=== PATIENT | male | born 1960 | race Caucasian/White ===

== ENCOUNTER 2017-03-10 16:57 | Inpatient (IN) | payer MEDICAID ==
--- NOTE | 2017-03-10 17:25 | EDPHY ---
H & P Stated Complaint: llq abd pain, unable to urinate Time Seen by Provider: 03/10/17 17:17 - Personal History Current Tetanus Diphtheria and Acellular Pertussis (TDAP): Unsure - Medical/Surgical History Other PMH: prostate problems, lung ca, copd, emotional problems-service dog - Social History Smoking Status: Current every day smoker Constitutional: Initial Vital Signs Temperature (C) 36.4 C 03/10/17 16:57 Heart Rate 86 03/10/17 16:57 Respiratory Rate 16 03/10/17 16:57 Blood Pressure 168/69 H 03/10/17 16:57 O2 Sat (%) 99 03/10/17 16:57 O2 Delivery Mode Room Air Allergies/Adverse Reactions: No Known Allergies Allergy (Verified 03/10/17 18:23) Home Medications: Medication Instructions Recorded NK [No Known Home Meds] 03/10/17 Medical Decision Making ED Course/Re-evaluation: CHIEF COMPLAINT: Dysuria, pain in his bladder and penis HISTORY OF PRESENT ILLNESS: The patient is a homeless 56 y/o male with a history of enlarged prostate complaining of urinary retention, hematuria, and pain in his bladder and penis. About a year and a half ago he saw a doctor who advised him to have prostate removal surgery. He never had the surgery. Since then he has had difficulty urinating, painful urination, and urinary retention. Today the pain in his bladder and penis increased prompting him to present to the ED. He denies any associated symptoms. REVIEW OF SYSTEMS: A 10 point review of systems was performed and is negative with the exception of the elements mentioned in the history of present illness. PHYSICAL EXAM: HR, BP, O2 Sat, RR. Temp noted General Appearance: Alert, well hydrated, appropriate, and non-toxic appearing. In obvious discomfort. Head: Atraumatic without scalp tenderness or obvious injury Eyes: Pupils equal, round, reactive to light and accommodation, EOMI, no trauma , no injection. Ears: Clear bilaterally, no perforation, normal landmarks Nose: Atraumatic, no rhinorrhea, clear. Throat: There is no erythema or exudates, no lesions, normal tonsils, mucus membranes moist. Neck: Supple, no lymphadenopathy. Respiratory: No retractions, no distress, no wheezes, and no accessory muscle use. Lungs are clear to auscultation bilaterally. Cardiovascular: Regular rate and rhythm, no murmurs, rubs, or gallops. Good capillary refill all extremities. Gastrointestinal: Abdomen is soft, nontender, non-distended, no masses, no rebound, no guarding, no peritoneal signs. Musculoskeletal: Normal active ROM of all extremities, atraumatic. Neurological: Alert, appropriate, and interactive. The patient has normal DTRs and non-focal cranial nerves, motor, sensory, and cerebellar exam. Skin: No rashes, good turgor, no nodules on palpation. Past medical history: Enlarged prostate, lung cancer Past surgical history: Denies Family history: Non-contributory Social history: Homeless, unemployed, resides in [place] DIAGNOSTICS/PROCEDURES/CRITICAL CARE TIME: DIFFERENTIAL DIAGNOSIS: The differential diagnosis for the patient's urinary retention included but was not limited to medication side effect, neurologic causes, outflow obstruction including prostatic hypertrophy, and infection. MEDICAL DECISION MAKING: The patient is a homeless 56 y/o male with a history of enlarged prostate complaining of difficulty urinating and pain in his bladder and penis. About a year and a half ago he was advised to have his prostate removed. He refused. Since then he has had difficulty urinating and pain in his bladder and penis. Today his symptoms were worse prompting him to present to the ED. I suspect severe infection due to urinary retention secondary to prostatic hypertrophy. Plan for admission based on his symptoms. Catheter inserted and bladder drained. Prior to catheter placement he had 900 residual in the bladder. Hospitalist service contacted and Dr. Farr will be admitting. - Data Points Laboratory Results: Laboratory Results 03/10/17 17:15 03/10/17 17:15 03/10/17 03/10/17 03/10/17 17:15 17:15 17:15 WBC RBC Hgb Hct MCV MCH MCHC RDW Plt Count MPV Neut % (Auto) Lymph % (Auto) Creek % (Auto) Eos % (Auto) Baso % (Auto) Nucleat RBC Rel Count Absolute Neuts (auto) Absolute Lymphs (auto) Absolute Monos (auto) Absolute Eos (auto) Absolute Basos (auto) Absolute Nucleated RBC Immature Gran % Immature Gran # Sodium 131 mEq/L L mEq/L (134-144) Potassium 4.1 mEq/L mEq/L (3.5-5.2) Chloride 92 mEq/L L mEq/L (97-110) Carbon Dioxide 22 mEq/l mEq/l (22-31) Anion Gap 17 mEq/L H mEq/L (8-16) BUN 9 mg/dL mg/dL (7-23) Creatinine 1.0 mg/dL mg/dL (0.7-1.3) Estimated GFR > 60 Glucose 102 mg/dL H mg/dL (70-100) Calcium 10.0 mg/dL mg/dL (8.5-10.4) Phosphorus 3.1 mg/dL mg/dL (2.5-4.5) Magnesium 1.8 mg/dL mg/dL (1.6-2.3) Total Bilirubin 1.1 mg/dL mg/dL (0.1-1.4) Conjugated Bilirubin 0.4 mg/dL mg/dL (0.0-0.5) Unconjugated Bilirubin 0.7 mg/dL mg/dL (0.0-1.1) AST 47 IU/L IU/L (17-59) ALT 54 IU/L IU/L (21-72) Alkaline Phosphatase 108 IU/L IU/L (38-126) Total Protein 8.6 g/dL H g/dL (6.3-8.2) Albumin 4.2 g/dL g/dL (3.5-5.0) Urine Color Urine Appearance Urine pH Ur Specific [place] Urine Protein Urine Ketones Urine Blood Urine Nitrate Urine Bilirubin Urine Urobilinogen Ur Leukocyte Esterase Urine RBC Cancelled Urine WBC Cancelled Ur Epithelial Cells Cancelled Ur Renal Epithelial Cell Cancelled Urine Crystals Cancelled Ammonium Urate Crystals Cancelled Calcium Carbonate Cryst Cancelled Calcium Phosphate Cryst Cancelled Calcium Oxalate Crystal Cancelled Leucine Crystals Cancelled Cystine Crystals Cancelled Uric Acid Crystals Cancelled Triple Phos Crystals Cancelled Sulfonamide Crystals Cancelled Cholesterol Crystals Cancelled Tyrosine Crystals Cancelled Bilirubin Crystals Cancelled Amorphous Sediment Cancelled Urine Bacteria Cancelled Epithelial Casts Cancelled Fatty Casts Cancelled Hyaline Casts Cancelled Granular Casts Cancelled Waxy Casts Cancelled Broad Casts Cancelled RBC Casts Cancelled WBC Casts Cancelled Urine Mucus Cancelled Urine Trichomonas Cancelled Urine Yeast Cancelled Urine Sperm Cancelled Ur Oval Fat Bodies Cancelled Ur Free Fat Droplets Cancelled Urine Glucose Urine Comment Cancelled 03/10/17 03/10/17 17:15 17:15 WBC 11.37 10^3/uL H 10^3/uL (3.80-9.50) RBC 4.82 10^6/uL 10^6/uL (4.40-6.38) Hgb 16.3 g/dL g/dL (13.7-17.5) Hct 43.6 % % (40.0-51.0) MCV 90.5 fL fL (81.5-99.8) MCH 33.8 pg pg (27.9-34.1) MCHC 37.4 g/dL H g/dL (32.4-36.7) RDW 12.6 % % (11.5-15.2) Plt Count 439 10^3/uL H 10^3/uL (150-400) MPV 9.1 fL fL (8.7-11.7) Neut % (Auto) 74.7 % H % (39.3-74.2) Lymph % (Auto) 19.5 % % (15.0-45.0) Creek % (Auto) 5.0 % % (4.5-13.0) Eos % (Auto) 0.1 % L % (0.6-7.6) Baso % (Auto) 0.3 % % (0.3-1.7) Nucleat RBC Rel Count 0.0 % % (0.0-0.2) Absolute Neuts (auto) 8.49 10^3/uL H 10^3/uL (1.70-6.50) Absolute Lymphs (auto) 2.22 10^3/uL 10^3/uL (1.00-3.00) Absolute Monos (auto) 0.57 10^3/uL 10^3/uL (0.30-0.80) Absolute Eos (auto) 0.01 10^3/uL L 10^3/uL (0.03-0.40) Absolute Basos (auto) 0.03 10^3/uL 10^3/uL (0.02-0.10) Absolute Nucleated RBC 0.00 10^3/uL 10^3/uL (0-0.01) Immature Gran % 0.4 % % (0.0-1.1) Immature Gran # 0.05 10^3/uL 10^3/uL (0.00-0.10) Sodium Potassium Chloride Carbon Dioxide Anion Gap BUN Creatinine Estimated GFR Glucose Calcium Phosphorus Magnesium Total Bilirubin Conjugated Bilirubin Unconjugated Bilirubin AST ALT Alkaline Phosphatase Total Protein Albumin Urine Color YELLOW Urine Appearance MODERATELY TURBID Urine pH 6.0 (5.0-7.5) Ur Specific [place] 1.006 (1.002-1.030) Urine Protein 1+ H (NEGATIVE) Urine Ketones TRACE H (NEGATIVE) Urine Blood 3+ H (NEGATIVE) Urine Nitrate NEGATIVE (NEGATIVE) Urine Bilirubin NEGATIVE (NEGATIVE) Urine Urobilinogen NEGATIVE EU EU (0.2-1.0) Ur Leukocyte Esterase 3+ H (NEGATIVE) Urine RBC 50-182 /hpf H /hpf (0-3) Urine WBC 50-182 /hpf H /hpf (0-3) Ur Epithelial Cells NONE SEEN /lpf /lpf (NONE-1+) Ur Renal Epithelial Cell Urine Crystals Ammonium Urate Crystals Calcium Carbonate Cryst Calcium Phosphate Cryst Calcium Oxalate Crystal Leucine Crystals Cystine Crystals Uric Acid Crystals Triple Phos Crystals Sulfonamide Crystals Cholesterol Crystals Tyrosine Crystals Bilirubin Crystals Amorphous Sediment Urine Bacteria TRACE /hpf H /hpf (NONE SEEN) Epithelial Casts Fatty Casts Hyaline Casts Granular Casts Waxy Casts Broad Casts RBC Casts WBC Casts Urine Mucus Urine Trichomonas Urine Yeast Urine Sperm Ur Oval Fat Bodies Ur Free Fat Droplets Urine Glucose NEGATIVE (NEGATIVE) Urine Comment Medications Given: Discontinued Medications Haloperidol Lactate (Haldol Injection) 10 mg IVP EDNOW ONE Stop: 03/10/17 17:39 Last Admin: 03/10/17 17:42 Dose: 10 mg Hydromorphone HCl (Dilaudid) 1 mg IVP EDNOW ONE Stop: 03/10/17 17:27 Last Admin: 03/10/17 17:29 Dose: 1 mg Ceftriaxone Sodium/Dextrose (Rocephin 1 Gm (Premix)) 50 mls @ 100 mls/hr IV EDNOW ONE PRN Reason: Protocol Stop: 03/10/17 18:09 Last Admin: 03/10/17 17:44 Dose: 50 mls Lorazepam (Ativan Injection) 1 mg IVP EDNOW ONE Stop: 03/10/17 17:31 Last Admin: 03/10/17 17:30 Dose: 1 mg Departure - Departure Disposition: [facility] Acute Clinical Impression: Urinary retention, Homeless UTI (urinary tract infection) Qualifiers: Urinary tract infection type: site unspecified Hematuria presence: with hematuria Qualified Code(s): N39.0 - Urinary tract infection, site not specified Condition: Fair Report Scribed for: Robbie Connor Report Scribed by: Kianna Rondon Date of Report: 03/10/17 Time of Report: 19:03
[2017-03-10] MEDS ORDERED: HYDROmorphONE/DILAUDID 1 MG/ML INJ IVP ONE (17:26)
[2017-03-10] MEDS ORDERED: LORazepam 2 MG/ML INJ ONE (17:27)
[2017-03-10] MEDS ORDERED: HYDROmorphONE/DILAUDID 1 MG/ML INJ ONE (17:27)
[2017-03-10 17:30] LABS: % IMMATURE GRANULYOCYTES 0.4 % (0.0-1.1); ABSOLUTE IMMATURE GRANULOCYTES 0.05 10^3/uL (0.00-0.10); ADD DIFF? NO; ADD MORPH? NO; ADD SCAN? NO; ATYPICAL LYMPHOCYTE FLAG 20 (0-99); FRAGMENT RBC FLAG 0 (0-99); HEMATOCRIT 43.6 % (40.0-51.0); HEMOGLOBIN 16.3 g/dL (13.7-17.5); LEFT SHIFT FLG 0 (0-99); LIPEMIA HEMOLYSIS FLAG 90 (0-99); MEAN CELL HEMOGLOBIN 33.8 pg (27.9-34.1); MEAN CELL HEMOGLOBIN CONCENTR. 37.4 g/dL (32.4-36.7); MEAN CELL VOLUME 90.5 fL (81.5-99.8); MEAN PLATELET VOLUME 9.1 fL (8.7-11.7); PLATELET CLUMPS FLAG 10 (0-99); PLATELET COUNT 439 10^3/uL (150-400); RED BLOOD CELL COUNT 4.82 10^6/uL (4.40-6.38); RED CELL DISTRIBUTION WIDTH 12.6 % (11.5-15.2)
[2017-03-10] MEDS ORDERED: LORazepam 2 MG/ML INJ IVP ONE (17:30)
[2017-03-10 17:32] LABS: COLOR YELLOW; LEUKOCYTE ESTERASE,URINE 3+ (NEGATIVE); NITRITE,URINE NEGATIVE (NEGATIVE)
[2017-03-10] MEDS ORDERED: HALOPERIDOL LACT 5 MG/ML INJ IVP ONE (17:38)
[2017-03-10] MEDS ORDERED: HALOPERIDOL LACT 5 MG/ML INJ ONE (17:40)
[2017-03-10 17:46] LABS: BACTERIA TRACE /hpf (NONE SEEN); RBC,URINE 50-182 /hpf (0-3); WBC,URINE 50-182 /hpf (0-3)
[2017-03-10 17:50] LABS: ANION GAP 17 mEq/L (8-16); CARBON DIOXIDE 22 mEq/l (22-31); CHLORIDE 92 mEq/L (97-110); GLOMERULAR FILTRATION RATE > 60; GLUCOSE 102 mg/dL (70-100); POTASSIUM 4.1 mEq/L (3.5-5.2); SODIUM 131 mEq/L (134-144)
[2017-03-10] MEDS ORDERED: ONDANSETRON 4 MG/2 ML VIAL IVP PRN (18:18)
[2017-03-10] MEDS ORDERED: ONDANSETRON DISINTEGRATING 4 MG TAB PO PRN (18:18)
[2017-03-10 18:42] LABS: ALBUMIN 4.2 g/dL (3.5-5.0); BILIRUBIN,TOTAL 1.1 mg/dL (0.1-1.4); BILIRUBIN-CONJUGATED 0.4 mg/dL (0.0-0.5); BILIRUBIN-UNCONJUGATED 0.7 mg/dL (0.0-1.1); MAGNESIUM 1.8 mg/dL (1.6-2.3); TOTAL PROTEIN 8.6 g/dL (6.3-8.2)
--- NOTE | 2017-03-10 19:34 | GHP ---
[f rep st] HISTORY AND PHYSICAL DATE OF ADMISSION: 03/10/2017 CHIEF COMPLAINT: Dysuria. HISTORY OF PRESENT ILLNESS: A 56-year-old homeless gentleman with history of COPD, asthma, enlarged prostate, presenting with difficulty urinating and dysuria. He is fairly somnolent during my intervi ew, and would have to shake to wake him up. He was able to state that he has been having difficulty urinating for the past year. He says he tried to initiate a stream and will only have 2 drops, and t hen has a burning sensation. Over the last 3 days, he states the burning and stinging sensation has been worse. Also noted hematuria. Subjective fevers and nausea. Denies diarrhea. No flank pain. No headache. No myalgias. No cough. No chest pain. No shortness of breath. REVIEW OF SYSTEMS: I completed a 10-point review of systems, negative except as noted in the HPI. PAST MEDICAL HISTORY: 1. Enlarged prostate. 2. COPD. 3. Asthma. 4. Tobacco abuse. 5. Tetrahydrocannabinol abuse. 6. Stage II lung cancer, per his report, untreated. PAST SURGICAL HISTORY: None. FAMILY HISTORY: Dad had a stroke. Mom of lung cancer. SOCIAL HISTORY: Two packs a day for 45 years. He is currently living in the [facility], in and out of [facility]. Smokes THC daily. Denies alcohol or other illicits. Not currently sexually active. ALLERGIES: No known drug allergies. MEDICATIONS: Not taking any medications. PHYSICAL EXAM: VITAL SIGNS: Temperature 36.4, blood pressure 168/69, heart rate 80, respirations 16 , 99% on room air. GENERAL: Disheveled, sleeping, difficult to keep awake during exam. HEENT: PERRLA. Dry mucous membranes. Poor senior living. CV: Regular rate and rhythm. No murmurs, gallops, rubs. LUNGS: Clear to auscultation bilaterally. ABDOMEN: Soft, nontender, nondistended. : Left suprapubic tenderness. No CVA tenderness. No penile discharge. MUSCULOSKELETAL: 5/5 upper lower extremity strength. NEURO: 2 through 12 intact. PSYCH: Alert and oriented x3. LABORATORY DATA: WBC 11.3, hemoglobin , hematocrit 43, platelets 439, sodium 131, potassiu m 4.1, chloride 92, anion gap is 17, creatinine is 1, glucose 102, phos 3.1. LFTs within normal. Al bumin is 4.2. The patient has been in [place] for 6 weeks, traveled from [place], and then previous ly [place] where he has his diagnosis of cancer, enlarged prostate. UA +1 protein, +3 blood, 50-182 WBCs, trace bacteria. Urine culture pending. ASSESSMENT AND PLAN: 1. Urinary tract infection: Urine culture pending. Continue IV ceftriaxone as dosed in the emergen cy room. 2. Tobacco abuse: Nicotine patch while here. 3. History of stage II lung cancer: This is per patient report. Can obtain records. Will need to establish care with a PCP here. 4. Chronic obstructive pulmonary disease: No evidence of exacerbation. 5. Diet: Regular. 6. Deep vein thrombosis prophylaxis: Lovenox. DISPOSITION: The patient warrants inpatient admission given acute UTI, requiring IV antibiotics and urine culture. /[id number]/MODL
[2017-03-10] MEDS: NICOTINE 21 MG/24 HR PATCH TD SCH (20:34)
[2017-03-10] MEDS ORDERED: LORazepam 2 MG/ML INJ IVP PRN (21:58)
[2017-03-10] MEDS ORDERED: HALOPERIDOL 0.5 MG TAB PO PRN (21:59)
[2017-03-10] MEDS ORDERED: HALOPERIDOL 1 MG TAB PO PRN (22:00)
[2017-03-10] MEDS: ACETAMINOPHEN 325 MG TAB PO PRN (22:48)
[2017-03-11] MEDS: oxyCODONE IR 5 MG TAB PO PRN ×5 (01:25→22:27)
[2017-03-11 05:11] LABS: % IMMATURE GRANULYOCYTES 0.4 % (0.0-1.1); ABSOLUTE IMMATURE GRANULOCYTES 0.05 10^3/uL (0.00-0.10); ADD DIFF? NO; ADD MORPH? NO; ADD SCAN? NO; ATYPICAL LYMPHOCYTE FLAG 10 (0-99); FRAGMENT RBC FLAG 0 (0-99); HEMATOCRIT 42.6 % (40.0-51.0); HEMOGLOBIN 15.4 g/dL (13.7-17.5); LEFT SHIFT FLG 0 (0-99); LIPEMIA HEMOLYSIS FLAG 90 (0-99); MEAN CELL HEMOGLOBIN CONCENTR. 36.2 g/dL (32.4-36.7); MEAN CELL VOLUME 91.4 fL (81.5-99.8); MEAN PLATELET VOLUME 8.7 fL (8.7-11.7); PLATELET CLUMPS FLAG 10 (0-99); PLATELET COUNT 378 10^3/uL (150-400); RED BLOOD CELL COUNT 4.66 10^6/uL (4.40-6.38); RED CELL DISTRIBUTION WIDTH 13.1 % (11.5-15.2)
[2017-03-11 05:32] LABS: ANION GAP 11 mEq/L (8-16); CALCIUM 9.1 mg/dL (8.5-10.4); CARBON DIOXIDE 21 mEq/l (22-31); CHLORIDE 104 mEq/L (97-110); CREATININE 0.9 mg/dL (0.7-1.3); GLOMERULAR FILTRATION RATE > 60; GLUCOSE 102 mg/dL (70-100); MAGNESIUM 1.7 mg/dL (1.6-2.3); SODIUM 136 mEq/L (134-144)
--- NOTE | 2017-03-11 05:41 | PDMN ---
Medical Necessity Medical necessity: C/M review: Patient meets INPT criteria under [facility] Urologic Disease GRG; Acute and persistent urinary tract infection, urinary retention, WBC 11.37, 14.02, Na 131 requiring planned Urology consult, ongoing IV Ceftriaxone QD, CIWA protocol, comorbid hx and current tobacco abuse, stage II lung cancer untreated, COPD, tetrahydrocannabinol abuse, asthma. MD anticipates > 2 MN LOS for ongoing med nec for eval and TX of above.
[2017-03-11] MEDS: ENOXAPARIN 40 MG/0.4 ML SYR SC SCH (08:26)
[2017-03-11] MEDS: NICOTINE 21 MG/24 HR PATCH TD SCH (08:26)
--- NOTE | 2017-03-11 14:36 | HOSPPROG ---
Hospitalist Progress Note Assessment/Plan: 56 yo M w PEREZ, complicated UTI, supposed lung CA UTI: ceftriaxone started await ucx likely 2/2 longstanding urinary retention ?lung CA: with longstanding smoking, he is certainly at risk he was told he had lung CA on basis of cxr in [place] he feels ready to address this 1. chest/abd pelvis CT 2. SW consult for medicaid christ PEREZ: start flomax ayers proph: lmh dispo: inpatient he will need urology and likely oncology follow up and therefore should apply for medicaid Subjective: c/o urethral pain Objective: Vital Signs Temp Pulse Resp BP Pulse Ox 36.3 C 109 H 18 144/105 H 95 03/11/17 11:31 03/11/17 11:31 03/11/17 11:31 03/11/17 11:31 03/11/17 11:31 Laboratory Results 03/11/17 05:00 03/11/17 05:00 03/10/17 03/11/17 03/12/17 05:59 05:59 05:59 Output Total 2950 550 Balance -2950 -550 - Physical Exam Constitutional: no apparent distress, appears nourished Eyes: PERRL, anicteric sclera Ears, Nose, Mouth, Throat: moist mucous membranes, hearing normal Cardiovascular: regular rate and rhythym, no murmur, rub, or gallop Respiratory: no respiratory distress, no rales or rhonchi Gastrointestinal: normoactive bowel sounds, soft, non-tender abdomen Genitourinary: no bladder fullness, ayers in urethra Skin: warm, normal color Musculoskeletal: full muscle strength Neurologic: AAOx3 Psychiatric: interacting appropriately, not anxious Lymph, Heme, Immunologic: no cervical LAD ICD10 Worksheet Patient Problems: Problems Problem Status Onset Homeless Acute UTI (urinary tract infection) Acute Urinary retention Acute
[2017-03-11] MEDS: LORazepam 1 MG TAB PO PRN ×2 (15:06→21:13)
[2017-03-11] MEDS: traMADol 50 MG TAB PO PRN ×2 (15:06→21:13)
[2017-03-11] MEDS: TAMSULOSIN HCL 0.4 MG CAP PO SCH (15:06)
--- NOTE | 2017-03-11 15:33 | ASMTCMCOM ---
CM Note CM Note Notes: 56 year old homeless male admitted for urinary retention, UTI, dysuria. He has a hx of COPD, Asthma, enlarged prostate, stage 2 lung CA. He smokes tobacco and THC. Patient needs to apply for Medicaid. Lft message for [place]. CM to follow for discharge needs. Date Signed: 03/11/2017 03:33 PM Electronically Signed By:Kenna Richards LCSW
[2017-03-11] MEDS: ACETAMINOPHEN 325 MG TAB PO PRN (21:13)
[2017-03-12] MEDS: ACETAMINOPHEN 325 MG TAB PO PRN ×2 (04:03→09:31)
[2017-03-12] MEDS: traMADol 50 MG TAB PO PRN ×2 (04:03→09:40)
[2017-03-12 05:55] LABS: % IMMATURE GRANULYOCYTES 0.5 % (0.0-1.1); ABSOLUTE IMMATURE GRANULOCYTES 0.07 10^3/uL (0.00-0.10); ADD DIFF? NO; ADD MORPH? NO; ADD SCAN? NO; ATYPICAL LYMPHOCYTE FLAG 10 (0-99); FRAGMENT RBC FLAG 0 (0-99); HEMATOCRIT 45.1 % (40.0-51.0); HEMOGLOBIN 16.6 g/dL (13.7-17.5); LEFT SHIFT FLG 0 (0-99); LIPEMIA HEMOLYSIS FLAG 90 (0-99); MEAN CELL HEMOGLOBIN 33.9 pg (27.9-34.1); MEAN CELL HEMOGLOBIN CONCENTR. 36.8 g/dL (32.4-36.7); MEAN PLATELET VOLUME 8.5 fL (8.7-11.7); PLATELET CLUMPS FLAG 30 (0-99); PLATELET COUNT 417 10^3/uL (150-400); RED CELL DISTRIBUTION WIDTH 13.2 % (11.5-15.2)
[2017-03-12 06:11] LABS: MAGNESIUM 1.5 mg/dL (1.6-2.3)
[2017-03-12] MEDS: NICOTINE 21 MG/24 HR PATCH TD SCH (09:01)
[2017-03-12] MEDS: ENOXAPARIN 40 MG/0.4 ML SYR SC SCH (09:02)
[2017-03-12] MEDS: oxyCODONE IR 5 MG TAB PO PRN (09:02)
[2017-03-12] MEDS: TAMSULOSIN HCL 0.4 MG CAP PO SCH (09:02)
--- NOTE | 2017-03-12 11:41 | HOSPPROG ---
Hospitalist Progress Note Assessment/Plan: Patient is a 56-year-old homeless gentleman with a history COPD, enlarged prostate who presented the emergency room with difficulty urinating. Today is my 1st encounter with the patient. Chart reviewed. UTI: ceftriaxone 03/10 Urine culture shows 1 colony likely 2/2 longstanding urinary retention Leukocytosis likely from the above ?lung CA: with longstanding smoking, he is certainly at risk he was told he had lung CA on basis of cxr [facility] of the chest shows a benign appearing 2 mm subpleural calcified granuloma. two seven mm ground-glass opacities seen anterior left lower recommendation is for CT re-evaluation in 3-6 months Nicotine dependence patch in place PEREZ: start Flomax ayers CT of the abdomen shows an abnormal appearance to the bladder which is thickened and associated prostatomegaly In addition has left adrenal gland hyperplasia Tiny cortical cyst in the lateral mid pole of the right kidney is noted Urology to see him and evaluate him during his stay appreciate Dr Topete hypomagnesium electrolyte protocol proph: lmwh dispo: inpatient Plan:Dr Topete to see, get calorie count/ poor intake,mag protocol, repeat labs in a.m. Subjective: Sandeep said he has been having problems with urination for the past 2 years. He is tearful when talking about the pain with this. Objective: Vital Signs Temp Pulse Resp BP Pulse Ox 36.6 C 111 H 17 118/81 H 89 L 03/12/17 08:47 03/12/17 08:47 03/12/17 08:47 03/12/17 08:47 03/12/17 08:47 Laboratory Results 03/12/17 05:37 03/11/17 05:00 03/11/17 03/12/17 03/13/17 05:59 05:59 05:59 Intake Total 480 Output Total 2950 1975 Balance -2950 -1495 - Physical Exam Constitutional: chronically ill appearing, unkempt Eyes: PERRL Ears, Nose, Mouth, Throat: hearing normal Cardiovascular: regular rate and rhythym Respiratory: no respiratory distress ([id number]) Gastrointestinal: normoactive bowel sounds Genitourinary: ayers in urethra Skin: warm Musculoskeletal: generalized weakness Neurologic: AAOx3 Psychiatric: interacting appropriately, depressed ICD10 Worksheet Patient Problems: Problems Problem Status Onset Homeless Acute UTI (urinary tract infection) Acute Urinary retention Acute
[2017-03-12] MEDS ORDERED: PROTOCOL MAGNESIUM 1 DOSE IV PRN (15:21)
[2017-03-12] MEDS ORDERED: MAGNESIUM SULF 1 GM/DEXTROSE 100 ML IV ONE (18:05)
[2017-03-13] MEDS: oxyCODONE IR 5 MG TAB PO PRN ×2 (04:29→21:18)
[2017-03-13 05:20] LABS: % IMMATURE GRANULYOCYTES 0.4 % (0.0-1.1); ABSOLUTE IMMATURE GRANULOCYTES 0.05 10^3/uL (0.00-0.10); ADD DIFF? NO; ADD MORPH? NO; ADD SCAN? NO; ATYPICAL LYMPHOCYTE FLAG 20 (0-99); FRAGMENT RBC FLAG 0 (0-99); HEMATOCRIT 45.2 % (40.0-51.0); HEMOGLOBIN 15.9 g/dL (13.7-17.5); LEFT SHIFT FLG 0 (0-99); LIPEMIA HEMOLYSIS FLAG 90 (0-99); MEAN CELL HEMOGLOBIN 32.3 pg (27.9-34.1); MEAN CELL HEMOGLOBIN CONCENTR. 35.2 g/dL (32.4-36.7); MEAN CELL VOLUME 91.9 fL (81.5-99.8); MEAN PLATELET VOLUME 8.3 fL (8.7-11.7); PLATELET CLUMPS FLAG 10 (0-99); PLATELET COUNT 425 10^3/uL (150-400); RED BLOOD CELL COUNT 4.92 10^6/uL (4.40-6.38)
[2017-03-13 05:33] LABS: ANION GAP 12 mEq/L (8-16); CALCIUM 9.1 mg/dL (8.5-10.4); CARBON DIOXIDE 22 mEq/l (22-31); CHLORIDE 102 mEq/L (97-110); CREATININE 0.9 mg/dL (0.7-1.3); GLOMERULAR FILTRATION RATE > 60; GLUCOSE 96 mg/dL (70-100); MAGNESIUM 1.5 mg/dL (1.6-2.3); SODIUM 136 mEq/L (134-144)
[2017-03-13] MEDS ORDERED: MAGNESIUM SULF 1 GM/DEXTROSE 100 ML IV ONE ×2 (07:46→14:15)
[2017-03-13] MEDS: TAMSULOSIN HCL 0.4 MG CAP PO SCH (07:53)
[2017-03-13] MEDS: traMADol 50 MG TAB PO PRN ×2 (07:53→14:18)
[2017-03-13] MEDS: ENOXAPARIN 40 MG/0.4 ML SYR SC SCH (07:53)
[2017-03-13] MEDS: NICOTINE 21 MG/24 HR PATCH TD SCH (07:54)
--- NOTE | 2017-03-13 08:55 | GCON ---
[f rep st] CONSULTATION DATE OF CONSULTATION: 03/13/2017 REFERRING PHYSICIAN: Renan REASON FOR CONSULTATION: Urinary retention with abnormal CAT scan. HISTORY OF PRESENT ILLNESS: I am asked to evaluate this 56-year-old homeless gentleman who was admit jhoana 2 days earlier from the emergency department with urinary difficulties. The patient states that for at least the past year and a half, he has had frequent urge to urinate and has to strain to pass only a small amount. On the day of admission, this progressed to where he could only urinate a few d rops at a time. There was a lot of pain and burning associated with this. A urinalysis showed large red blood cells and white blood cells. CT scan showed a thickened bladder and significantly enlarge d prostate. No stones or hydronephrosis were noted. No other gross abnormalities were readily visua lized on the CT scan. The catheter was placed and is now draining. The patient was started on antib iotics. Urine culture showed single low colony counts of bacteria and was not further characterized. PAST MEDICAL HISTORY: Positive for COPD, asthma, tobacco abuse, tetrahydrocannabinol abuse. PAST SURGICAL HISTORY: None. SOCIAL HISTORY: Significant for 2 pack a day cigarettes, as well as THC daily. He denies alcohol. ALLERGIES: No known drug allergies. MEDICATIONS: No regular medicines. EXAM: GENERAL: The patient is in no acute distress. ABDOMEN: Soft, nontender. : Catheter is i n place and draining clear urine. IMPRESSION: Urinary retention with chronic inflammation, likely due to benign prostatic hypertrophy. RECOMMENDATION: I suspect that the patient would be noncompliant with medical management. I have re commended that he undergo exam under anesthesia with likely transurethral resection of the prostate. The potential risks, recovery time, and alternatives were discussed. He is amenable to this approac h. I will need to discuss possible operative times. Unfortunately, my schedule is already fairly fu ll, but I will try to work this in within the next several days. In the meantime, a Lancaster catheter s hould stay in and if he is going to be discharged, he likely will need a catheter. /[id number]/MODL
--- NOTE | 2017-03-13 10:30 | SOAPPROG ---
SOAP Progress Note Assessment/Plan: Assessment:Urinary retention Plan: 03/13/17 10:29 The patient is scheduled for TURP on Sunday03/14/2017 at 1345. NPO order written. Continue Lancaster catheter for now. Objective: Vital Signs Temp Pulse Resp BP Pulse Ox 36.8 C 115 H 16 124/87 H 95 03/13/17 07:36 03/13/17 07:36 03/13/17 07:36 03/13/17 07:36 03/13/17 07:36 Laboratory Results 03/13/17 05:10 03/13/17 05:10 03/12/17 03/13/17 03/14/17 05:59 05:59 05:59 Intake Total 480 1030 Output Total 1975 1025 Balance -1495 5 ICD10 Worksheet Patient Problems: Problems Problem Status Onset Homeless Acute UTI (urinary tract infection) Acute Urinary retention Acute
--- NOTE | 2017-03-13 15:17 | HOSPPROG ---
Hospitalist Progress Note Assessment/Plan: Patient is a 56-year-old homeless gentleman with a history COPD, enlarged prostate who presented the emergency room with difficulty urinating. Pyruia: ceftriaxone 03/10 Urine culture shows 1 colony likely 2/2 longstanding urinary retention will dc after tomorrow's dose Urinary retention with chronic inflammation/BPH to get a TURP tomorrow very appreciative of Dr Efrem ayers CT of the abdomen shows an abnormal appearance to the bladder which is thickened and associated prostatomegaly In addition has left adrenal gland hyperplasia Tiny cortical cyst in the lateral mid pole of the right kidney is noted Leukocytosis likely from the above lung nodule/ ?lung CA: he was told he had lung CA on basis of cxr [place] CT of the chest shows a benign appearing 2 mm subpleural calcified granuloma. two seven mm ground-glass opacities seen anterior left lower recommendation is for CT re-evaluation in 3-6 months Nicotine dependence patch in place he says he is determined to quit h hypomagnesium electrolyte protocol proph: lmwh/will hold tomorrow's dose dispo: inpatient Plan: OR tomorrow Subjective: Sandeep is so happy that Dr Topete is seeing him. Has no pain. Wants to live with good health. Objective: Vital Signs Temp Pulse Resp BP Pulse Ox 37.2 C 112 H 16 121/68 H 94 03/13/17 11:30 03/13/17 11:30 03/13/17 11:30 03/13/17 11:30 03/13/17 11:30 Laboratory Results 03/13/17 05:10 03/13/17 05:10 03/12/17 03/13/17 03/14/17 05:59 05:59 05:59 Intake Total 480 1030 Output Total 1975 1025 Balance -1495 5 - Physical Exam Constitutional: not in pain, unkempt Eyes: PERRL Ears, Nose, Mouth, Throat: hearing normal Cardiovascular: regular rate and rhythym Respiratory: no respiratory distress Gastrointestinal: normoactive bowel sounds Genitourinary: ayers in urethra (has gross hematuria) Musculoskeletal: full muscle strength Neurologic: AAOx3 Psychiatric: interacting appropriately, not anxious ICD10 Worksheet Patient Problems: Problems Problem Status Onset Homeless Acute UTI (urinary tract infection) Acute Urinary retention Acute
[2017-03-13] MEDS: LIDOCAINE 5% 1 EA PATCH TD SCH (16:04)
[2017-03-13] MEDS: LORazepam 1 MG TAB PO PRN (21:18)
[2017-03-13] MEDS: PATCH REMOVAL 1 EA PATCH TD SCH (21:25)
[2017-03-13] MEDS ORDERED: NS 1,000 ML IV SCH (23:45)
[2017-03-14] MEDS: ENOXAPARIN 40 MG/0.4 ML SYR SC SCH (06:58)
[2017-03-14] MEDS ORDERED: MAGNESIUM SULF 1 GM/DEXTROSE 100 ML IV ONE (08:17)
[2017-03-14] MEDS: TAMSULOSIN HCL 0.4 MG CAP PO SCH (09:06)
[2017-03-14] MEDS: oxyCODONE IR 5 MG TAB PO PRN ×2 (09:06→19:34)
[2017-03-14] MEDS: NICOTINE 21 MG/24 HR PATCH TD SCH (09:07)
[2017-03-14] MEDS: LIDOCAINE 5% 1 EA PATCH TD SCH (09:12)
--- NOTE | 2017-03-14 09:45 | HOSPPROG ---
Hospitalist Progress Note Assessment/Plan: Patient is a 56-year-old homeless gentleman with a history COPD, enlarged prostate who presented the emergency room with difficulty urinating. Pyruia: ceftriaxone 03/10 Urine culture shows 1 colony likely 2/2 longstanding urinary retention will dc today Urinary retention with chronic inflammation/BPH to get a TURP today very appreciative of Dr Efrem ayers CT of the abdomen shows an abnormal appearance to the bladder which is thickened and associated prostatomegaly In addition has left adrenal gland hyperplasia Tiny cortical cyst in the lateral mid pole of the right kidney is noted Leukocytosis improving lung nodule/ ?lung CA: he was told he had lung CA on basis of cxr in snf CT of the chest shows a benign appearing 2 mm subpleural calcified granuloma. two seven mm ground-glass opacities seen anterior left lower recommendation is for CT re-evaluation in 3-6 months Nicotine dependence patch in place he says he is determined to quit h hypomagnesium electrolyte protocol proph: lmwh/will hold tomorrow's dose dispo: inpatient Plan: OR today Subjective: Sandeep is so appreciative about getting surgery today. Objective: Vital Signs Temp Pulse Resp BP Pulse Ox 36.6 C 88 18 113/78 93 03/14/17 08:24 03/14/17 08:24 03/14/17 08:24 03/14/17 08:24 03/14/17 08:24 Laboratory Results 03/13/17 05:10 03/13/17 05:10 03/13/17 03/14/17 03/15/17 05:59 05:59 05:59 Intake Total 1030 1400 Output Total 1025 1000 Balance 5 400 - Physical Exam Constitutional: chronically ill appearing, other (thin) Eyes: PERRL Ears, Nose, Mouth, Throat: poor dentition Cardiovascular: regular rate and rhythym Respiratory: no respiratory distress, reduced air movement (bases) Skin: warm Musculoskeletal: full muscle strength Neurologic: AAOx3 Psychiatric: interacting appropriately ICD10 Worksheet Patient Problems: Problems Problem Status Onset Homeless Acute UTI (urinary tract infection) Acute Urinary retention Acute
[2017-03-14] MEDS ORDERED: MAGNESIUM SULF 1 GM/DEXTROSE 100 ML BAG IV ONE (11:42)
[2017-03-14] MEDS ORDERED: LR 1,000 ML IV ONE (13:17)
--- NOTE | 2017-03-14 13:35 | PDANEPAE ---
ANE Past Medical History - Cardiovascular History Hx Hypertension: Yes - Pulmonary History Hx COPD: Yes Hx Oxygen in Use at Home: No Hx Sleep Apnea: No Sleep Apnea Screening Result - Last Documented: Negative ANE Review of Systems Review of Systems: ANE Patient History - Allergies Allergies/Adverse Reactions: No Known Allergies Allergy (Verified 03/10/17 18:23) - Home Medications Home Medications: NK [No Known Home Meds] 03/10/17 [Last Taken Unknown] - NPO status NPO Since - Liquids (Date): 03/14/17 NPO Since - Liquids (Time): 00:00 NPO Since - Solids (Date): 03/14/17 NPO Since - Solids (Time): 00:00 - Smoking Hx Smoking Status: Current every day smoker ANE Labs/Vital Signs - Labs Result Diagrams: 03/13/17 05:10 03/13/17 05:10 - Vital Signs Blood Pressure: 133/96 Heart Rate: 102 Respiratory Rate: 16 O2 Sat (%): 95 Height: 162.56 cm Weight: 65.771 kg ANE Physical Exam - Airway Mallampati Score: Class 2 Mouth exam: poor dentition - ASA Status ASA Status: III ANE Anesthesia Plan Anesthesia Plan: GA w LMA
[2017-03-14] MEDS ORDERED: fentaNYL 100 MCG/2 ML INJ ONE ×4 (13:38→15:30)
[2017-03-14] MEDS ORDERED: MIDAZOLAM 2 MG/2 ML VIAL ONE (13:38)
[2017-03-14] MEDS ORDERED: PROPOFOL 200 MG/20 ML VIAL ONE (13:38)
[2017-03-14] MEDS ORDERED: METOCLOPRAMIDE 10 MG/2 ML VIAL ONE (13:40)
[2017-03-14] MEDS ORDERED: ONDANSETRON 4 MG/2 ML VIAL ONE (13:41)
[2017-03-14] MEDS ORDERED: LIDOCAINE 2% JELLY 5 ML TUBE ONE (13:41)
[2017-03-14] MEDS ORDERED: OPIUM/BELLADONNA ALKALO SUPP PR ONE (14:49)
--- NOTE | 2017-03-14 15:00 | POSTOPPROG ---
Post Op Note Date of Operation: 03/14/17 Surgeon: Jacinto Topete Anesthesia: LMA Pre-op Diagnosis: urinary retention Post-op Diagnosis: same secondary to bladder outlet obstruction Procedure: Transurethral resection of the prostate Inf/Abcess present in the surg proc area at time of surgery?: No
[2017-03-14] MEDS ORDERED: OPIUM/BELLADONNA ALKALO SUPP PR PRN (15:01)
[2017-03-14] MEDS ORDERED: ALBUTEROL 3 ML DEYVIAL IH PRN (15:03)
[2017-03-14] MEDS ORDERED: MEPERIDINE 25 MG/ML SYR IVP PRN (15:03)
[2017-03-14] MEDS ORDERED: LR 500 ML IV PRN (15:03)
[2017-03-14] MEDS ORDERED: NALOXONE HCL 0.4 MG/ML INJ IVP PRN (15:03)
--- NOTE | 2017-03-14 15:04 | POSTANESTH ---
Post Anesthetic Evaluation Cardiovascular Status: Normal, Stable Respiratory Status: Normal, Stable Level of Consciousness/Mental Status: Can Participate in Eval Pain Control: Adequate, Prn Tx Ordered Nausea/Vomiting Control: Adequate, Prn Tx Ordered Complications Possibly Related to Anesthesia: None Noted
[2017-03-14] MEDS: fentaNYL 100 MCG/2 ML INJ IVP PRN ×4 (15:05→15:39)
--- NOTE | 2017-03-14 15:14 | ASMTCMCOM ---
CM Note CM Note Notes: Pt having TURP surgery today. DC needs not clear yet. Pt is homeless. May possibly need penitentiary bed. CM will need to check in with pt in AM. Date Signed: 03/14/2017 03:13 PM Electronically Signed By:Alma Live RN
[2017-03-14] MEDS: HYDROmorphone HCL/NS/PF 0.4 MG/2 ML SYR IVP PRN ×2 (16:27→20:33)
[2017-03-14] MEDS ORDERED: HYDROmorphONE/DILAUDID 2 MG/ML INJ IVP ONE (16:52)
[2017-03-14] MEDS: traMADol 50 MG TAB PO PRN (19:59)
[2017-03-14] MEDS: PATCH REMOVAL 1 EA PATCH TD SCH (20:30)
[2017-03-14] MEDS ORDERED: KETOROLAC 15 MG/1 ML SDV IVP PRN (22:26)
[2017-03-14] MEDS ORDERED: LIDOCAINE 2% JELLY 5 ML TUBE TP PRN (22:27)
[2017-03-15] MEDS: HYDROmorphone HCL/NS/PF 0.4 MG/2 ML SYR IVP PRN (01:38)
--- NOTE | 2017-03-15 02:34 | GOP ---
[f rep st] OPERATIVE REPORT DATE OF OPERATION: 03/14/2017 SURGEON: Jacinto Topete MD PREOPERATIVE DIAGNOSIS: Urinary retention. POSTOPERATIVE DIAGNOSIS: Urinary retention secondary to bladder outlet obstruction from prostatic hy perplasia. PROCEDURE PERFORMED: Transurethral resection of the prostate. FINDINGS: INDICATIONS: The patient is a 56-year-old gentleman with a several year history of worsening voiding problems, who was admitted with gross hematuria and urinary retention. CT scan showed a thickened b ladder and prostatomegaly. Due to his history, his social circumstances, options were reviewed and i t was elected to undergo cystoscopy with presumed transurethral prostatectomy. DESCRIPTION OF PROCEDURE: After informed consent with general LMA anesthesia, the patient is placed in the lithotomy position with his genitalia sterilely prepped and draped. The continuous flow resec toscope was passed into the bladder. Examination showed very heavy trabeculation. No masses, foreig n bodies, or stones were seen. The patient had bilobar obstruction with bladder neck hyperplasia. T he bipolar resectoscope loop was then used to resect the lateral, posterior and anterior tissue betwe en the bladder neck and verumontanum. The bladder neck was then resected posteriorly to create a wid e open channel. Care was taken to avoid coagulation near the ureteral orifices. Chips were evacuate d, bleeders were fulgurated, the scope was removed and a 20-Bulgarian 3-way irrigating Lancaster catheter wa s inserted and placed to continuous irrigation. A B and O suppository was given. The patient was awakened, transferred to the recovery room in stable condition. There were no intrao perative complications. Blood loss was less than 100 mL and the specimen was prostate chips for path ologic evaluation. /[id number]/MODL
[2017-03-15 05:32] LABS: % IMMATURE GRANULYOCYTES 0.5 % (0.0-1.1); ABSOLUTE IMMATURE GRANULOCYTES 0.06 10^3/uL (0.00-0.10); ADD DIFF? NO; ADD MORPH? NO; ADD SCAN? NO; ATYPICAL LYMPHOCYTE FLAG 10 (0-99); FRAGMENT RBC FLAG 0 (0-99); HEMATOCRIT 38.7 % (40.0-51.0); HEMOGLOBIN 13.8 g/dL (13.7-17.5); LEFT SHIFT FLG 10 (0-99); LIPEMIA HEMOLYSIS FLAG 90 (0-99); MEAN CELL HEMOGLOBIN 33.6 pg (27.9-34.1); MEAN CELL HEMOGLOBIN CONCENTR. 35.7 g/dL (32.4-36.7); MEAN CELL VOLUME 94.2 fL (81.5-99.8); MEAN PLATELET VOLUME 8.3 fL (8.7-11.7); PLATELET CLUMPS FLAG 0 (0-99); PLATELET COUNT 351 10^3/uL (150-400); RED BLOOD CELL COUNT 4.11 10^6/uL (4.40-6.38); RED CELL DISTRIBUTION WIDTH 12.8 % (11.5-15.2)
[2017-03-15 05:45] LABS: ALANINE AMINOTRANSFERASE 41 IU/L (21-72); ALBUMIN 2.9 g/dL (3.5-5.0); ALKALINE PHOSPHATASE 55 IU/L (38-126); ANION GAP 6 mEq/L (8-16); ASPARTATE AMINOTRANSFERASE 39 IU/L (17-59); BILIRUBIN,TOTAL 0.6 mg/dL (0.1-1.4); CALCIUM 8.5 mg/dL (8.5-10.4); CARBON DIOXIDE 27 mEq/l (22-31); CHLORIDE 102 mEq/L (97-110); CREATININE 0.8 mg/dL (0.7-1.3); GLOMERULAR FILTRATION RATE > 60; GLUCOSE 86 mg/dL (70-100); MAGNESIUM 1.4 mg/dL (1.6-2.3); POTASSIUM 4.2 mEq/L (3.5-5.2); SODIUM 135 mEq/L (134-144); TOTAL PROTEIN 5.9 g/dL (6.3-8.2)
[2017-03-15] MEDS: oxyCODONE IR 5 MG TAB PO PRN (08:12)
[2017-03-15 08:32] VITALS: BP 132/73; PULSE 75; RESP 18; TEMP 98; O2SAT 95
--- NOTE | 2017-03-15 09:43 | SOAPPROG ---
SOAP Progress Note Assessment/Plan: Assessment:Urinary retention Plan: 03/13/17 10:29 The patient is scheduled for TURP on Sunday03/14/2017 at 1345. NPO order written. Continue Lancaster catheter for now. 03/15/17 09:41 Catheter has been removed. From a standpoint, the patient can be discharged if he is able to comfortably void. He should try to schedule a 4 week f/u appointment with me. Subjective: Pt has no complaints this morning. Objective: Vital Signs Temp Pulse Resp BP Pulse Ox 36.6 C 75 18 132/73 H 95 03/15/17 08:29 03/15/17 08:29 03/15/17 08:29 03/15/17 08:29 03/15/17 08:29 Laboratory Results 03/15/17 05:23 03/15/17 05:23 03/14/17 03/15/17 03/16/17 05:59 05:59 05:59 Intake Total 1400 1940 Output Total 1000 750 Balance 400 1190 Physical Exam - Physical Exam General Appearance: WD/WN, alert, no apparent distress Abdomen: non-tender, soft Male Genitalia: other (Urine light pink with minimal CBI; catheter was removed.) ICD10 Worksheet Patient Problems: Problems Problem Status Onset Homeless Acute UTI (urinary tract infection) Acute Urinary retention Acute
[2017-03-15] MEDS: NICOTINE 21 MG/24 HR PATCH TD SCH (10:03)
[2017-03-15] MEDS: ENOXAPARIN 40 MG/0.4 ML SYR SC SCH (10:07)
--- NOTE | 2017-03-15 11:16 | ASMTCMCOM ---
CM Note CM Note Notes: Pt to DC today. Long Term bed has been reserved for him. Date Signed: 03/15/2017 11:15 AM Electronically Signed By:Aleah Whyte LCSW
--- NOTE | 2017-03-15 11:23 | ASDISCHSUM ---
Discharge Information Plan Status: Medically Cleared to Leave: Discharge Date: CM D/C Disposition: ADT D/C Disposition: Projected Discharge Date: Transportation at D/C: Discharge Delay Reason: Follow-Up Date: Discharge Slot: Final Diagnosis: Placement Information Patient Contact Information Contact Name:MASHA Relationship: Address: Home Phone: Work Phone: City: Alternate Phone: State/Zip Code: Email: Financial Information Financial Class: Primary Plan Desc:[employer] [place] Primary Plan Number:[id number] Secondary Plan Desc: Secondary Plan Number: Assessment Information [facility] CM Progress Note CM Note CM Note Notes: 56 year old homeless male admitted for urinary retention, UTI, dysuria. He has a hx of COPD, Asthma, enlarged prostate, stage 2 lung CA. He smokes tobacco and THC. Patient needs to apply for Medicaid. Lft message for [employer]. to follow for discharge needs. Date Signed: 03/11/2017 03:33 PM Electronically Signed By:Kenna Richards LCSW [facility] CM Progress Note CM Note CM Note Notes: Pt having TURP surgery today. DC needs not clear yet. Pt is homeless. May possibly need assisted bed. CM will need to check in with pt in AM. Date Signed: 03/14/2017 03:13 PM Electronically Signed By:Alma Live RN [facility] CM Progress Note CM Note CM Note Notes: Pt to DC today. Group Home bed has been reserved for him. Date Signed: 03/15/2017 11:15 AM Electronically Signed By:Aleah Whyte LCSW Intervention Information
[2017-03-15] MEDS ORDERED: LORazepam 0.5 MG TAB PO ONE (12:40)
--- NOTE | 2017-03-15 17:32 | GDS ---
[f rep st] DISCHARGE SUMMARY NOTE: The patient left against medical advice on 03/15/2017. DISCHARGE DIAGNOSES: Include: 1. Acute urinary retention secondary to benign prostatic hypertrophy. 2. Acute leukocytosis, presumed secondary to above. 3. Lung nodule. 4. Nicotine dependence. 5. Hypomagnesemia. 6. Homelessness. HISTORY OF PRESENT ILLNESS: A 56-year-old male, who presents with history of difficulty urinating. For details of patient's initial presentation, please see the History and Physical dated 03/10/2017. CONSULTATIVE SERVICES: Include Neurology. PROCEDURES: On 03/14/2017, patient underwent TURP. HOSPITAL COURSE BY ISSUE: Acute urinary retention. The patient was found to have markedly enlarged prostatic hyperplasia, was taken to the operating room on 03/14/2017, for TURP. Patient had successf ul surgical intervention. Had his Lancaster catheter removed on 03/15/2017. Patient opted to leave [facility] medical advice prior to effectively passing urine on his own, secondary to concerns about his dog and needing to leave the hospital to find him. The patient left without prescribed pain medications or witnessed voiding. He did receive education related to followup with outpatient Neurology. We a re hopeful the patient will follow as requested. MEDICATIONS AT THE TIME OF TRANSFER: Please reference medication reconciliation printed on 7. RETURN APPOINTMENT: Should be with Dr. Toptee in the outpatient setting in the next 1-2 weeks. PENDING STUDIES: At the time of this dictation, none. /[id number]/MODL
--- NOTE | 2017-03-20 11:51 | PQFORM ---
PHYSICIAN QUERY FORM Needs Your Response This query form is being sent to you to assure this patient record is coded properly. Please respond to the question below: IMPLEMENTATION ANALYST QUESTION: Dr. Hassan, In the impression of the pathology report, adenocarcinoma of the prostate is documented. Do you agree with the additional diagnosis of prostate cancer, and that it should be listed as a secondary diagnosis in the discharge summary? Yes x No Other Clinically undetermined Many thanks, DESMOND Luque [facility]/Coding Department W: [phone] INSTRUCTIONS FOR RESPONSE: Answer question by clicking on the "Edit Document" button. Move cursor to area below the stars. When complete, hit "Save." Click on the "Sign" button, then click "Sign" again. Type in your PIN and hit "Enter." MTDD
== END 2017-03-15 12:56 | disposition left against medical advice (07) | DRG 714 ==
LOC: OBSVTOIN 18:19 → F1N 20:22
PROVIDERS: ADMIT Internal Medicine; ATTEND Hospitalist
PROC: 0VB08ZZ Excision of Prostate, Via Natural or Artificial Opening Endoscopic (ICD-10-PCS; principal; 2017-03-14 13:45)
DX: N40.1 Benign prostatic hyperplasia with lower urinary tract symptoms (principal); R33.9 Retention of urine, unspecified; C61 Malignant neoplasm of prostate; R91.1 Solitary pulmonary nodule; E83.42 Hypomagnesemia; F17.210 Nicotine dependence, cigarettes, uncomplicated; J44.9 Chronic obstructive pulmonary disease, unspecified; J45.909 Unspecified asthma, uncomplicated; Z59.0 Homelessness
CPT/HCPCS: 96365; J0696; J1170; J1650; J1885; J2060; J2250; J2405; J2704; J2765; J3010; J3475